=== PATIENT | female | born 1990 | race Caucasian/White ===

== ENCOUNTER 2016-11-04 08:50 | Emergency (ER) | payer MEDICAID ==
[~2016-11-04] VITALS: Ht 162.6 cm; Wt 67.1 kg
[~2016-11-04 08:50] MED LIST: METR500T1 PO; OMEP20TC24 PO; [UNRECOGNIZED DRUG - CODE] PO; [UNRECOGNIZED DRUG - CODE] PO
[2016-11-04 08:56] VITALS: BP 101/59
--- NOTE | 2016-11-04 09:01 | NUR ---
Patient ambulated to bed 05.
[2016-11-04] MEDS ORDERED: ACETAMINOPHEN EXTRA STRENGTH 500 MG TAB PO ONE (09:10)
[2016-11-04] MEDS ORDERED: IBUPROFEN 600 MG TAB PO ONE (09:10)
--- NOTE | 2016-11-04 09:10 | NUR ---
PATIENT PRESENTS TO ED WITH C/O UPPER ABD PRESSURE X 3 DAYS, PT ALSO STATES SHE HAD VAGINAL SPOTTING 2 X IN THE PAST WEEK; DENIES N/V/D; SKIN IS PINK/WARM/DRY; AAOX4 WITH EVEN AND STEADY GAIT; LUNGS CLEAR BL; HR EVEN AND REGULAR; PT DENIES ANY FEVER, CP, SOB, OR COUGH AT THIS TIME; PATIENT STATES PAIN OF 8/10 AT THIS TIME; VSS; PATIENT POSITIONED FOR COMFORT; HOB ELEVATED; BEDRAILS UP X2; BED DOWN. ER MD MADE AWARE OF PT STATUS.
[2016-11-04 09:37] LABS: BASOPHILS # (AUTO) 0.2 K/uL (0.00-0.22); BASOPHILS % (AUTO) 2.4 % (0.0-2.0); EOSINOPHILS # (AUTO) 0.1 K/uL (0-0.4); EOSINOPHILS % (AUTO) 1.7 % (0.0-4.0); HEMATOCRIT 37.7 % (36-48); HEMOGLOBIN 12.4 g/dL (12.0-16.0); LYMPHOCYTES # (AUTO) 1.9 K/uL (2.5-16.5); MEAN CORPUSCULAR HEMOGLOBIN 27 pg (27-31); MEAN CORPUSCULAR HGB CONC 33 g/dL (33-37); MEAN CORPUSCULAR VOLUME 82 fL (80-94); MONOCYTES # (AUTO) 0.3 K/uL (0.8-1.0); NEUTROPHILS # (AUTO) 5.8 K/uL (1.8-7.7); NEUTROPHILS % (AUTO) 68.9 % (42.2-75.2); PLATELET COUNT (AUTO) 229 K/uL (140-450); RED BLOOD CELL COUNT(AUTO) 4.57 MIL/uL (4.20-5.40); RED CELL DISTRIBUTION WIDTH 12.8 % (11.6-13.7); WHITE BLOOD COUNT (AUTO) 8.3 K/uL (4.8-10.8)
[2016-11-04 09:44] LABS: BILIRUBIN,URINE NEGATIVE (NEGATIVE); BLOOD, URINE 1+ (NEGATIVE); COLOR,URINE YELLOW (YELLOW); LEUKOCYTE ESTERASE ,URINE NEGATIVE (NEGATIVE); NITRITE, URINE NEGATIVE (NEGATIVE); PROTEIN,URINE NEGATIVE (NEGATIVE); UGLUCOSE NEGATIVE (NEGATIVE); UROBILINOGEN,URINE 0.2 EU/dL (0.2 - 1)
[2016-11-04 09:49] LABS: APPEARANCE,URINE SLIGHTLY HAZY (CLEAR)
[2016-11-04 09:54] LABS: BACTERIA,URINE 0-2 (RARE) /HPF (None Seen); MUCUS,URINE None Seen /LPF (None Seen); RBC,URINE 0-5 (RARE) /HPF (0-5); SQUAMOUS EPITHELIAL CELL,UR 0-3 (FEW) /LPF (0-3 (FEW)); WBC,URINE NONE SEEN /HPF (0-5)
--- NOTE | 2016-11-04 12:17 | NUR ---
DR SEVERINO EXAMINING THE PT WITH KERA THORPE AT BEDSIDE
[2016-11-04 13:22] VITALS: BP 99/58
[2016-11-06 07:04] LABS: CHLAMYDIA TRACHOMATIS AMP DNA Negative (Negative)
== END 2016-11-04 13:22 | disposition home or self-care (01) ==
LOC: MED 08:56
DX: N93.8 Other specified abnormal uterine and vaginal bleeding (principal); R10.2 Pelvic and perineal pain; R03.0 Elevated blood-pressure reading, without diagnosis of hypertension; Z32.02 Encounter for pregnancy test, result negative
CPT/HCPCS: 36415; 81001; 85025; 87070; 87210; 87491; 99284

== ENCOUNTER 2017-07-15 13:36 | Emergency (ER) | payer MEDICAID ==
[~2017-07-15] VITALS: Ht 157.5 cm; Wt 66.9 kg
[~2017-07-15 13:36] MED LIST changes: +IBUP-121 PO; +OMEP20TC12 PO; -OMEP20TC24 PO; +[UNRECOGNIZED DRUG - CODE] PO; -[UNRECOGNIZED DRUG - CODE] PO; -[UNRECOGNIZED DRUG - CODE] PO
[2017-07-15 13:43] VITALS: BP 101/61
--- NOTE | 2017-07-15 13:49 | NUR ---
Paiient to bed 6 at this time.
--- NOTE | 2017-07-15 13:52 | NUR ---
26F BIB SELF C/O MID-ABDOMINAL PAIN, NON-RADIATING, PRESSURE, 10/10 X LAST NIGHT; PT C/O 4 EPISODES OF VOMITING TODAY, WITH MORE THAN 15 EPISODES OF DIARRHEA TODAY; ABDOMEN SOFT, NON-TENDER, ACTIVE BOWEL SOUNDS X 4 QUADRANTS; PT AA&OX4, PERRLA, BL LUNG SOUNDS CLEAR, RR EVEN/UNLABORED, SKIN IS WARM/DRY/INTACT AT THIS TIME; STEADY GAIT; PT RESTING IN BED WITH HOB ELEVATED AND IN LOWEST POSITION; POSITIONED FOR COMFORT; ER MD MADE AWARE OF STATUS. WILL CONTINUE TO MONITOR.
--- NOTE | 2017-07-15 14:17 | NUR ---
ER MD DR. INTERIANO EVALUATING PT AT BEDSIDE.
[2017-07-15] MEDS: DIPHENOXYLATE /ATROPINE 2.5 MG TAB PO ONE (14:30)
[2017-07-15] MEDS: ONDANSETRON 4 MG ODT PO ONE (14:30)
[2017-07-15 14:50] VITALS: BP 92/62
--- NOTE | 2017-07-15 14:50 | NUR ---
Patient discharged with v/s stable. PT BP 92/62 at discharge. Pt states no dizziness or weakness at this time. ER MD Dr. Randle notified. Written and verbal after care instructions given and explained. Patient alert, oriented and verbalized understanding of instructions. Ambulatory with steady gait. All questions addressed prior to discharge. ID band removed. Patient advised to follow up with PMD. Rx of ZOFRAN ODT 4MG AND LOMOTIL 2.5MG-0.025MG TAB given. Patient educated on indication of medication including possible reaction and side effects. Opportunity to ask questions provided and answered.
== END 2017-07-15 14:50 | disposition home or self-care (01) ==
LOC: MED 13:36
DX: R10.13 Epigastric pain (principal); R11.10 Vomiting, unspecified; R19.7 Diarrhea, unspecified; Z90.89 Acquired absence of other organs
CPT/HCPCS: 81002; 81025; 99283; S0119

== ENCOUNTER 2019-08-30 21:08 | Emergency (ER) | payer MEDICAID ==
[~2019-08-30] VITALS: Ht 160 cm; Wt 68.5 kg
[2019-08-30 21:13] VITALS: BP 119/70
--- NOTE | 2019-08-30 21:16 | NUR ---
INFLUENZA SWAB COLLECTED
--- NOTE | 2019-08-30 21:18 | NUR ---
PT AMBULATED TO LOBBY WITH STEADY GAIT
--- NOTE | 2019-08-30 22:38 | NUR ---
patient amb to bed 5
--- NOTE | 2019-08-30 22:40 | NUR ---
PT 28 Y/O FEMALE BIB SELF FOR DRY NON-PRODUCTIVE COUGH X 3 DAYS. PT ALSO HAS C/O 7/10 GENERALIZED BODY ACHES. PT ADMITS TO N/V X 1 EPISODE AT 4PM. PT STATES COLOR OF EMISIS IS CLEAR. PT TOOK MOTRIN FOR COUGH/ FEVER WITH INEFFECTIVE RESULTS. AFEBRILE. RESPIRTATIONS ARE EVEN AND UNLABORED. LUNG SOUNDS CLEAR A/P BILAT. SKIN IS WARM AND DRY TO TOUCH. PT RESTING IN BED LAYING DOWN. BED IN LOWEST POSITION AND LOCKED IN PLACE. MED HX: NONE ALLERGIES: NKA
--- NOTE | 2019-08-30 23:09 | NUR ---
PT AMBULATED TO RESTROOM WITH OUTASSISTANCE AND STEADY GAIT.
--- NOTE | 2019-08-31 00:28 | NUR ---
Dr. Block at bedside.
[2019-08-31] MEDS ORDERED: KETOROLAC 60 MG/2 ML VIAL IM ONE (00:35)
--- NOTE | 2019-08-31 00:45 | NUR ---
PT UPRIGHT IN BED EYES CLOSED. RSPIRATIONS ARE EVEN AND UNLABORED. SKIN IS WARM AND DRY TO TOUCH. BED LOCKED AND IN LOWEST POSITION.
--- NOTE | 2019-08-31 01:00 | NUR ---
Patient discharged with v/s stable. Written and verbal after care instructions given and explained. Patient alert, oriented and verbalized understanding of instructions. Ambulatory with steady gait. All questions addressed prior to discharge. ID band removed. Patient advised to follow up with PMD. Rx of NORCO, PREDNISONE, MOTRIN given. Patient educated on indication of medication including possible reaction and side effects. Opportunity to ask questions provided and answered.
[2019-08-31 01:02] VITALS: BP 116/82
== END 2019-08-31 01:00 | disposition home or self-care (01) ==
LOC: MED 21:08
DX: J11.1 Influenza due to unidentified influenza virus with other respiratory manifestations (principal); Z98.890 Other specified postprocedural states; Z79.899 Other long term (current) drug therapy; Z88.6 Allergy status to analgesic agent
CPT/HCPCS: 81002; 81025; 87804; 96372; 99283; J1885

== ENCOUNTER 2019-11-01 21:12 | Emergency (ER) | payer MEDICAID ==
[~2019-11-01] VITALS: Ht 161.3 cm; Wt 69.4 kg
[2019-11-01 21:23] VITALS: BP 128/85
[2019-11-01] MEDS ORDERED: KETOROLAC 30 MG/ML VIAL IM ONE (22:10)
[2019-11-01 22:31] LABS: BASOPHILS # (AUTO) 0.1 K/uL (0.00-0.22); BASOPHILS % (AUTO) 0.7 % (0.0-2.0); EOSINOPHILS # (AUTO) 0.1 K/uL (0-0.4); HEMATOCRIT 35.9 % (36-48); LYMPHOCYTES # (AUTO) 3.1 K/uL (2.5-16.5); LYMPHOCYTES % (AUTO) 25.2 % (20.5-51.1); MEAN CORPUSCULAR HEMOGLOBIN 28 pg (27-31); MEAN CORPUSCULAR HGB CONC 33 g/dL (33-37); MEAN CORPUSCULAR VOLUME 83.5 fL (80-94); MONOCYTES # (AUTO) 0.6 K/uL (0.8-1.0); MONOCYTES % (AUTO) 4.8 % (1.7-9.3); NEUTROPHILS # (AUTO) 8.4 K/uL (1.8-7.7); NEUTROPHILS % (AUTO) 68.3 % (42.2-75.2); PLATELET COUNT (AUTO) 284 K/uL (140-450); RED CELL DISTRIBUTION WIDTH 13.1 % (11.6-13.7); WHITE BLOOD COUNT (AUTO) 12.3 K/uL (4.8-10.8)
[2019-11-01 22:47] LABS: PROTHROMBIN TIME 9.8 secs (10.8-13.4)
[2019-11-01 22:48] LABS: ALBUMIN 3.6 g/dL (3.4-5.0); ANION GAP 13.5 (8-16); CARBON DIOXIDE 26.2 mmol/L (21-32); CREATININE 0.7 mg/dL (0.6-1.3); POTASSIUM 3.7 mmol/L (3.5-5.1); TOTAL BILIRUBIN 0.2 mg/dL (0.0-1.0)
[2019-11-02 02:30] VITALS: BP 98/59
== END 2019-11-02 02:30 | disposition home or self-care (01) ==
LOC: MED 21:12
DX: R07.89 Other chest pain (principal); Z79.899 Other long term (current) drug therapy
CPT/HCPCS: 36415; 71045; 80053; 83880; 84484; 85025; 85610; 85730; 93005; 96372; 99285; J1885

== ENCOUNTER 2022-03-29 19:34 | Emergency (ER) | payer MEDICAID ==
[~2022-03-29] VITALS: Ht 157.5 cm; Wt 75.8 kg
[~2022-03-29 19:34] MED LIST changes: +OMEP-278 PO; -OMEP20TC12 PO
[2022-03-29 20:09] VITALS: BP 112/72
[2022-03-30] MEDS ORDERED: KETOROLAC 30 MG/ML VIAL IM ONE (00:35)
--- NOTE | 2022-03-30 00:35 | NUR ---
PT TAKEN TO BED 12
--- NOTE | 2022-03-30 00:35 | NUR ---
Dr. Lopez examining patient.
--- NOTE | 2022-03-30 00:47 | NUR ---
Pt walked in c/o left ear pain x2 days. +minimal hearing loss, denies drainage, eye pain, throat pain. Pt denies recently swimming.
[2022-03-30] MEDS ORDERED: CIPR7.5S OT (00:50)
[2022-03-30] MEDS ORDERED: ACET-8386 PO (00:50)
[2022-03-30] MEDS ORDERED: NAPR-54 PO (00:50)
[2022-03-30 01:39] VITALS: BP 110/75
--- NOTE | 2022-03-30 01:39 | NUR ---
Patient discharged with v/s stable. Written and verbal after care instructions given and explained. Patient alert, oriented and verbalized understanding of instructions. Ambulatory with steady gait. All questions addressed prior to discharge. ID band removed. Patient advised to follow up with PMD. Rx of CIPRO OTIC, NORCO, NAPROSYN given. Patient educated on indication of medication including possible reaction and side effects. Opportunity to ask questions provided and answered.
== END 2022-03-30 01:39 | disposition home or self-care (01) ==
LOC: MED 19:34
DX: H60.92 Unspecified otitis externa, left ear (principal)
CPT/HCPCS: 81025; 96372; 99283; J1885